=== PATIENT | male | born 1970 | race Caucasian/White ===

== ENCOUNTER 2025-01-20 07:05 | Outpatient (CLI) | payer OTHER, SELFPAY ==
--- NOTE | 2025-01-20 07:17 | MR_ITS ---
WS: [id number] MRI BRAIN WITHOUT CONTRAST HISTORY: DIZZINESS/GIDDINESS COMPARISON: None available. TECHNIQUE: Diffusion imaging, multiplanar T1, T2 and FLAIR imaging obtained. No evidence for acute infarct or hemorrhage. Millan-white matter differentiation is normal. No significant atrophy. Very minimal small vessel changes. No prior infarct. No cerebellar volume loss. No hippocampal atrophy. Ventricles and extra-axial spaces are normal. No inferior displacement of cerebellar tonsils. The sella turcica and pituitary gland are unremarkable. Dural venous sinuses and [place] of [place] demonstrate no abnormality on this unenhanced studies. Paranasal sinuses: Small mucous retention cyst in the floor of the RIGHT maxillary sinus. No air-fluid levels. Mastoid air cells: Normal. Calvarium and scalp: Intact. MR/MR head wo con* [id number] IMPRESSION: 1. No acute intracranial hemorrhage or edema. 2. No diffusion abnormality or acute infarct. 3. Mild small vessel changes.
== END 2025-01-20 07:06 | disposition home or self-care (01) ==
LOC: RAD 07:07
PROVIDERS: PCP Nurse Practitioner Family; Visit Provider Nurse Practitioner Family
DX: R42 Dizziness and giddiness (principal)
CPT/HCPCS: 70551